=== PATIENT | female | born 1965 | race Caucasian/White ===

== ENCOUNTER 2016-03-17 11:02 | Inpatient (IN) | payer MEDICAID ==
[~2016-03-17] VITALS: Ht 160 cm; Wt 128.0 kg
[2016-03-17] MEDS ORDERED: MORPHINE 4 MG/ML SYR ONE (17:42)
[2016-03-17] MEDS ORDERED: ONDANSETRON 4 MG VIAL ONE (17:42)
[2016-03-17] MEDS ORDERED: ACETAMINOPHEN 325 MG TAB PO PRN (19:10)
[2016-03-17] MEDS ORDERED: Rivaroxaban 15 MG TAB PO SCH (19:10)
[2016-03-17] MEDS ORDERED: PROMETHAZINE 25 MG/ML VIAL IV PRN (19:10)
[2016-03-17] MEDS ORDERED: LACTULOSE SOLN 20GM/30ML UDC PO PRN (19:10)
[2016-03-17] MEDS ORDERED: DILAUDID 1 MG/ML AMP IV PRN (19:10)
[2016-03-17] MEDS ORDERED: SALINE FLUSH 10 ML FLUSH PRN (19:10)
[2016-03-17] MEDS ORDERED: ONDANSETRON 4 MG VIAL IV PUSH PRN (19:10)
[2016-03-17] MEDS ORDERED: ALU/MAG/SIM 30 ML UDC PO PRN (19:10)
[2016-03-17] MEDS ORDERED: ALPRAZOLAM 0.25 MG TAB PO PRN (19:10)
[2016-03-17] MEDS ORDERED: ENOXAPARIN 120 MG/0.8 ML SYR SUBQ SCH (22:00)
[2016-03-17] MEDS: SERTRALINE 100 MG TAB PO SCH (23:01)
[2016-03-17] MEDS: SALINE FLUSH 10 ML FLUSH SCH (23:02)
[2016-03-17 23:23] VITALS: RESP 20
[2016-03-17 23:25] VITALS: BP_SYST 118; RESP 20; TEMP 97.9
[2016-03-17 23:26] VITALS: Ht 160 cm; Wt 128.0 kg
[2016-03-18 04:01] VITALS: BP_SYST 101; RESP 18
[2016-03-18] MEDS: SODIUM CHLORIDE 0.9% FLUSH BAG 500 ML IV SCH (04:34)
[2016-03-18] MEDS: NEB-BUDESONIDE 0.5 MG INH SCH ×2 (07:00→19:35)
[2016-03-18] MEDS: NEB-BROVANA 15 MCG/2 ML INH SCH ×2 (07:00→19:35)
[2016-03-18 07:46] VITALS: BP_SYST 100; RESP 18; TEMP 97.9
[2016-03-18] MEDS ORDERED: BUDESONIDE INH SCH (09:00)
[2016-03-18] MEDS ORDERED: [UNRECOGNIZED DRUG - OTHER] INH SCH (09:00)
[2016-03-18] MEDS ORDERED: FORMOTEROL FUMARATE INH SCH (09:00)
[2016-03-18] MEDS: Rivaroxaban 15 MG TAB PO SCH ×2 (09:12→17:18)
[2016-03-18] MEDS: SALINE FLUSH 10 ML FLUSH SCH ×2 (09:12→19:39)
[2016-03-18] MEDS ORDERED: ENOXAPARIN 120 MG/0.8 ML SYR SUBQ SCH (10:00)
[2016-03-18 11:27] VITALS: BP_SYST 100; RESP 18; TEMP 97.8
[2016-03-18 15:35] VITALS: BP_SYST 106; RESP 18; TEMP 98
[2016-03-18 19:35] VITALS: BP_SYST 119; RESP 18; TEMP 97.3
[2016-03-18] MEDS: SERTRALINE 100 MG TAB PO SCH (21:00)
[2016-03-18 23:25] VITALS: BP_SYST 126; RESP 20; TEMP 98.5
[2016-03-19 03:46] VITALS: BP_SYST 112; RESP 18; TEMP 98.1
[2016-03-19] MEDS: SODIUM CHLORIDE 0.9% FLUSH BAG 500 ML IV SCH (05:15)
[2016-03-19] MEDS: NEB-BROVANA 15 MCG/2 ML INH SCH (07:06)
[2016-03-19] MEDS: NEB-BUDESONIDE 0.5 MG INH SCH (07:06)
[2016-03-19 07:40] VITALS: BP_SYST 123; RESP 18; TEMP 97.7
[2016-03-19 09:44] VITALS: BP_SYST 123; RESP 18; TEMP 97.7
[2016-03-19] MEDS: Rivaroxaban 15 MG TAB PO SCH (10:13)
[2016-03-19] MEDS: SALINE FLUSH 10 ML FLUSH SCH (10:14)
[2016-03-20] MEDS ORDERED: SODIUM CHLORIDE 0.9% FLUSH BAG 500 ML IV SCH (06:00)
== END 2016-03-19 10:33 | disposition home or self-care (01) | DRG 176 ==
LOC: ENRESERVDT → ENRESERVTM → ENRESERV → ER 11:02 → UNDOADMIN 19:10 → EMR 19:10 → PCU 19:10 → ENPENDDIS 19:10 → PCU 21:48 → EMR 21:48 → UNDODISIN 03-19 10:33
PROVIDERS: ADMIT Internal Medicine Nephrology; ATTEND Internal Medicine Nephrology
DX: I26.99 Other pulmonary embolism without acute cor pulmonale (principal); C50.911 Malignant neoplasm of unspecified site of right female breast; E78.5 Hyperlipidemia, unspecified; F41.8 Other specified anxiety disorders; F32.9 Major depressive disorder, single episode, unspecified; R00.0 Tachycardia, unspecified; Z92.21 Personal history of antineoplastic chemotherapy
CPT/HCPCS: 36415; 71020; 71260; 80053; 82553; 83735; 83880; 84484; 85007; 85027; 85379; 85610; 85730; 93005; 93971; 94640; 94799; 96374; 96375